=== PATIENT | male | born 2000 | race Caucasian/White ===

== ENCOUNTER 2020-12-29 20:10 | Emergency (ER) | payer OTHER ==
[~2020-12-29 20:10] MED LIST: PHENERGAN12.5 M1 PO; VENTOLIN HFA IN18 GM INH; ZPAK PO
[2020-12-29] MEDS ORDERED: NAPROXEN500 MG PO (21:18)
== END 2020-12-29 21:30 | disposition home or self-care (01) ==
LOC: FER 20:10
DX: S76.112A Strain of left quadriceps muscle, fascia and tendon, initial encounter (principal); F17.290 Nicotine dependence, other tobacco product, uncomplicated; Z88.0 Allergy status to penicillin; X58.XXXA Exposure to other specified factors, initial encounter; Y92.89 Other specified places as the place of occurrence of the external cause; Y99.0 Civilian activity done for income or pay
CPT/HCPCS: 99282